=== PATIENT | male | born 1985 | race African-American/Black ===

== ENCOUNTER 2016-08-29 22:23 | Emergency (ER) | payer SELFPAY ==
[~2016-08-29] VITALS: Ht 170.2 cm; Wt 88.5 kg
[2016-08-29 22:23] VITALS: BP 154/83
[~2016-08-29 22:23] MED LIST: FAMO20TA8; HYDR-3658; ONDA-25; PHEN100C4 PO
[2016-08-29] MEDS ORDERED: MAG HYDROX/AL HYDROX/SIMETH 30 ML UDC ONE (22:46)
[2016-08-29] MEDS ORDERED: LIDOCAINE VISCOUS 2% UD 15 ML UDC ONE (22:47)
[2016-08-29] MEDS ORDERED: IV NS 0.9% 1,000 ML ONE (22:47)
[2016-08-29] MEDS ORDERED: IV SET PRIMARY 1 EA INFUS.SET MC ONE (22:47)
[2016-08-29 22:51] LABS: BASOPHILS # (AUTO) 0.1 /CMM (0.0-0.2); BASOPHILS % (AUTO) 0.9 % (0.0-2.0); DIFF TOTAL % 100 %; EOSINOPHILS # (AUTO) 0.1 /CMM (0.0-0.7); EOSINOPHILS % (AUTO) 1.3 % (0.0-6.0); HEMATOCRIT 46 % (39-51); HEMOGLOBIN 15.1 g/dL (13.5-17.5); LYMPHOCYTES # (AUTO) 2.1 /CMM (0.8-4.8); LYMPHOCYTES % (AUTO) 30.5 % (20.0-44.0); MEAN CORPUSCULAR HEMOGLOBIN 30 PG (26.0-33.0); MEAN CORPUSCULAR HGB CONC 33 g/dl (31.0-36.0); MEAN CORPUSCULAR VOLUME 90 fL (80-96); MONOCYTES # (AUTO) 0.3 /CMM (0.1-1.30); MONOCYTES % (AUTO) 3.9 % (2.0-12.0); NEUTROPHILS # (AUTO) 4.5 /CMM (1.8-8.9); NEUTROPHILS % (AUTO) 63.4 % (43.0-81.0); PLATELET COUNT (AUTO) 300 /CMM (150-450); RED BLOOD CELL COUNT(AUTO) 5.06 MIL/uL (4.5-6.0)
[2016-08-29] MEDS ORDERED: BELLADONNA /PHENOBARB 5 ML UDC 5 ML UDC PO ONE (23:00)
[2016-08-29] MEDS ORDERED: IV NS 0.9% 1,000 ML BAG IV ONE (23:00)
[2016-08-29] MEDS ORDERED: MAG HYDROX/AL HYDROX/SIMETH 30 ML UDC PO ONE ×2 (23:00)
[2016-08-29] MEDS ORDERED: LIDOCAINE VISCOUS 2% UD 15 ML UDC MM ONE ×2 (23:00)
[2016-08-29 23:04] LABS: CALCIUM, SERUM 8.4 mg/dL (8.5-10.1); POTASSIUM 3.9 mmol/L (3.5-5.1)
[2016-08-29 23:09] LABS: ALBUMIN 4.2 g/dL (3.4-5.0); BILIRUBIN,DIRECT 0.1 mg/dL (0.0-0.2); BILIRUBIN,TOTAL 0.5 mg/dL (0.2-1.0); INDIRECT BILIRUBIN 0.4 mg/dL (0.0-1.1)
[2016-08-29 23:18] LABS: INR 0.95 (0.87-1.13); PROTHROMBIN TIME 10.3 SECS (9.5-12.7)
== END 2016-08-29 23:56 | disposition left against medical advice (07) ==
LOC: ER 22:26
DX: R10.9 Unspecified abdominal pain (principal); G89.29 Other chronic pain; G40.909 Epilepsy, unspecified, not intractable, without status epilepticus; F20.9 Schizophrenia, unspecified; Z86.711 Personal history of pulmonary embolism
CPT/HCPCS: 80048; 80076; 82962; 85025; 85730; 93005; 96360; 99285; A4606; G0480; J7030; Z7610; 36415

== ENCOUNTER 2018-12-06 09:52 | Emergency (ER) | payer MEDICAID, OTHER ==
[~2018-12-06] VITALS: Ht 185.4 cm; Wt 114.8 kg
[~2018-12-06 09:52] MED LIST changes: -HYDR-3658; +HYDR-3980; -ONDA-25; +ONDA4TAB10
--- NOTE | 2018-12-06 09:55 | NUR ---
AAOx3, came to ER c/o chronic lower back pain, denies recent fall or injury. Skin is warm and dry. Resp is even and unlabored with nad noted. Awaiting MD for eval.
[2018-12-06] MEDS ORDERED: KETOROLAC TROMETHAMINE INJ 30 MG/ML VIAL ONE (10:17)
[2018-12-06 10:25] VITALS: BP 140/95
[2018-12-06] MEDS ORDERED: KETOROLAC TROMETHAMINE INJ 30 MG/ML VIAL IM ONE (10:30)
== END 2018-12-06 10:27 | disposition home or self-care (01) ==
LOC: ER 09:54
DX: M54.5 Low back pain (principal); F20.9 Schizophrenia, unspecified; F10.10 Alcohol abuse, uncomplicated; Y90.9 Presence of alcohol in blood, level not specified; Z90.89 Acquired absence of other organs; Z86.711 Personal history of pulmonary embolism
CPT/HCPCS: 96372; 99283; J1885

== ENCOUNTER 2019-05-01 08:03 | Emergency (ER) | payer MEDICAID, OTHER ==
[~2019-05-01] VITALS: Ht 185.4 cm; Wt 118.8 kg
--- NOTE | 2019-05-01 08:34 | NUR ---
PT CAME IN TO ER WITH C/O OF SUICIDAL IDEATION. PATIENT DOES NOT ENDORSE HARMING SELF OR OTHERS. NO SI. PATIENT ADMITS TO USE OF ALCOHOL, COCAINE, AND NARCOTICS. PATIENT IS KEPT IN BED WITH MOINTOR CONNECTED. SITTER AT BEDSIDE. WILL CONTINUE TO MONITOR PATIENT FOR SAFETY.
[2019-05-01 08:39] LABS: BASOPHILS # (AUTO) 0.1 /CMM (0.0-0.2); EOSINOPHILS % (AUTO) 3.6 % (0.0-6.0); HEMATOCRIT 43 % (39-51); HEMOGLOBIN 14.7 g/dL (13.5-17.5); LYMPHOCYTES # (AUTO) 1.8 /CMM (0.8-4.8); LYMPHOCYTES % (AUTO) 35.1 % (20.0-44.0); MEAN CORPUSCULAR HGB CONC 34 g/dl (31.0-36.0); MEAN CORPUSCULAR VOLUME 94 fL (80-96); MONOCYTES # (AUTO) 0.6 /CMM (0.1-1.30); MONOCYTES % (AUTO) 10.9 % (2.0-12.0); NEUTROPHILS # (AUTO) 2.6 /CMM (1.8-8.9); NEUTROPHILS % (AUTO) 49.4 % (43.0-81.0); PLATELET COUNT (AUTO) 135 /CMM (150-450); RED BLOOD CELL COUNT(AUTO) 4.56 MIL/uL (4.5-6.0); WHITE BLOOD COUNT (AUTO) 5.3 K/uL (4.3-11.0)
--- NOTE | 2019-05-01 08:42 | NUR ---
DAD'S PHONE NUMBER# [phone].
[2019-05-01 08:52] LABS: CALCIUM, SERUM 8.5 mg/dL (8.5-10.1); POTASSIUM 4.2 mmol/L (3.5-5.1)
[2019-05-01 08:59] LABS: ALBUMIN 4.4 g/dL (3.4-5.0); BILIRUBIN,DIRECT 0.5 mg/dL (0.0-0.2); BILIRUBIN,TOTAL 1.1 mg/dL (0.2-1.0); SALICYLATE 2.3 mg/dL (2.8-20.0)
[2019-05-01 09:44] LABS: APPEARANCE,URINE Clear (CLEAR); BILIRUBIN,URINE SMALL (NEGATIVE); BLOOD, URINE Moderate Ery/uL (NEGATIVE); COLOR,URINE Yellow (YELLOW); KETONES,URINE 15 (NEGATIVE); LEUKOCYTE ESTERASE ,URINE Negative (NEGATIVE); NITRITE, URINE Negative (NEGATIVE); PROTEIN,URINE 100 mg/dl (NEGATIVE); UGLUCOSE Negative (NEGATIVE)
[2019-05-01 09:46] LABS: BACTERIA,URINE Rare /HPF (None Seen); SQUAMOUS EPITHELIAL CELL,UR Rare /HPF (None Seen); WBC,URINE 0-2 /HPF (0-3)
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
--- NOTE | 2019-05-01 14:06 | NUR ---
ARACELI called ED x [phone] and spoke with Dony informing him that pt. will need another alcohol level check prior to ARACELI sending clinical referral packet to [facility]. Dony informed ARACELI he will notify pt's RN Adriel.
[2019-05-01] MEDS ORDERED: IV NS 0.9% 1,000 ML BAG IV ONE (17:30)
[2019-05-01] MEDS ORDERED: DIAZEPAM 5 MG/ML 2 ML DISP.SYRIN IV ONE (17:30)
[2019-05-01] MEDS ORDERED: HYDR-4384 PO (17:48)
[2019-05-01] MEDS ORDERED: RIVA10TA PO (17:48)
[2019-05-01] MEDS ORDERED: LORAZEPAM INJ 2 MG/ML VIAL ONE (17:49)
[2019-05-01] MEDS ORDERED: LORAZEPAM INJ 2 MG/ML VIAL IV ONE (18:00)
--- NOTE | 2019-05-01 20:37 | NUR ---
PT IN BED SLEEPING. 1:1 SITTER AT BEDSIDE
[2019-05-01] MEDS ORDERED: LORAZEPAM 1 MG TABLET ONE (23:35)
--- NOTE | 2019-05-01 23:57 | NUR ---
Patient discharged to home in stable condition. Written and verbal after care instructions given. Patient verbalizes understanding of instruction.IV removed. Catheter intact and site benign. Pressure and 4x4 applied to site. No bleeding noted. Pt ambulatory with a steady gait. Pt denies any suicidal ideation.
[2019-05-02] MEDS ORDERED: LORAZEPAM 1 MG TABLET PO ONE
[2019-05-02 00:37] VITALS: BP 131/90
== END 2019-05-01 23:57 | disposition home or self-care (01) ==
LOC: ER 08:06
DX: R45.851 Suicidal ideations (principal); Z90.89 Acquired absence of other organs; Z79.899 Other long term (current) drug therapy
CPT/HCPCS: 36415; 80048; 80076; 80305; 80307 ×2; 80329; 81001; 85025; 96374; 99284; G0480; J2060; J7030; 81000-TC

== ENCOUNTER 2020-06-04 13:58 | Inpatient (IN) | payer MEDICAID, OTHER ==
[~2020-06-04] VITALS: Ht 190.5 cm; Wt 107.5 kg
[~2020-06-04 13:58] MED LIST changes: -FAMO20TA8; -HYDR-3980; +HYDR-4384 PO; -ONDA4TAB10; -PHEN100C4 PO; +RIVA10TA PO
--- NOTE | 2020-06-04 14:10 | NUR ---
[place] PT STATED THAT HE 'HAD A SEIZURE' NO WITNESSES. PT CALLED 911 HIMSELF. VS CHECKED. SEEN BY
--- NOTE | 2020-06-04 14:20 | NUR ---
URINE COLLECTED SENT TO LAB.
[2020-06-04] MEDS ORDERED: LORAZEPAM INJ 2 MG/ML VIAL IV ONE (14:30)
[2020-06-04] MEDS ORDERED: FOLIC ACID 1 MG TABLET PO ONE (14:30)
[2020-06-04] MEDS ORDERED: IV NS 0.9% 1,000 ML IV ONE (14:30)
[2020-06-04] MEDS ORDERED: LIDOCAINE VISCOUS 2% UD 15 ML UDC MM ONE (14:30)
[2020-06-04] MEDS ORDERED: MAG HYDROX/AL HYDROX/SIMETH 30 ML UDC PO ONE (14:30)
[2020-06-04] MEDS ORDERED: THIAMINE HCL 100 MG TABLET PO ONE (14:30)
[2020-06-04] MEDS ORDERED: FAMOTIDINE/PF INJ 20 MG/2 ML VIAL IV ONE ×2 (14:30→14:44)
[2020-06-04] MEDS ORDERED: ONDANSETRON HCL/PF 4 MG/2 ML VIAL IV ONE (14:30)
[2020-06-04] MEDS ORDERED: MAG HYDROX/AL HYDROX/SIMETH 30 ML UDC ONE (14:43)
[2020-06-04] MEDS ORDERED: LIDOCAINE VISCOUS 2% UD 15 ML UDC ONE (14:43)
[2020-06-04] MEDS ORDERED: THIAMINE HCL 100 MG TABLET ONE (14:44)
[2020-06-04] MEDS ORDERED: FOLIC ACID 1 MG TABLET ONE (14:44)
[2020-06-04] MEDS ORDERED: ONDANSETRON HCL/PF 4 MG/2 ML VIAL ONE (14:44)
[2020-06-04] MEDS ORDERED: LORAZEPAM INJ 2 MG/ML VIAL ONE (14:45)
[2020-06-04 14:47] LABS: BASOPHILS % (AUTO) 0.8 % (0.0-2.0); EOSINOPHILS % (AUTO) 0.4 % (0.0-6.0); HEMATOCRIT 45 % (39-51); LYMPHOCYTES # (AUTO) 1.9 /CMM (0.8-4.8); LYMPHOCYTES % (AUTO) 43.8 % (20.0-44.0); MEAN CORPUSCULAR HGB CONC 34 g/dl (31.0-36.0); MEAN CORPUSCULAR VOLUME 95 fL (80-96); MONOCYTES # (AUTO) 0.3 /CMM (0.1-1.30); MONOCYTES % (AUTO) 7.8 % (2.0-12.0); NEUTROPHILS % (AUTO) 47.2 % (43.0-81.0); PLATELET COUNT (AUTO) 92 /CMM (150-450); RED BLOOD CELL COUNT(AUTO) 4.69 MIL/uL (4.5-6.0); WHITE BLOOD COUNT (AUTO) 4.3 K/uL (4.3-11.0)
[2020-06-04 15:13] LABS: BILIRUBIN,URINE NEGATIVE (NEGATIVE); BLOOD, URINE TRACE-INTA Ery/uL (NEGATIVE); COLOR,URINE YELLOW (YELLOW); LEUKOCYTE ESTERASE ,URINE NEGATIVE (NEGATIVE); NITRITE, URINE NEGATIVE (NEGATIVE); PROTEIN,URINE NEGATIVE (NEGATIVE); UGLUCOSE NEGATIVE (NEGATIVE); UROBILINOGEN,URINE 0.2 EU/dL (0.2)
[2020-06-04 15:36] LABS: BACTERIA,URINE None seen /HPF (None Seen); RBC,URINE 0-2 /HPF (0-2); SQUAMOUS EPITHELIAL CELL,UR 0-2 /HPF (None Seen); WBC,URINE 0-2 /HPF (0-3)
[2020-06-04 16:23] LABS: EOSINOPHILS % (MANUAL) 1 % (0-4); LYMPHOCYTES % (MANUAL) 39 % (16-48); MONOCYTES % (MANUAL) 5 % (0-11.0); NEUTROPHILS % (MANUAL) 55 (42-76)
--- NOTE | 2020-06-04 16:24 | NUR ---
CALLED NURSING SUP FOR TELE BED.
--- NOTE | 2020-06-04 16:26 | NUR ---
called lab for pending lab results
--- NOTE | 2020-06-04 16:55 | NUR ---
NURSING SUP GAVE TELE BED 112-1.
--- NOTE | 2020-06-04 17:10 | NUR ---
called for report, rajendra jones will call back in 10 min.
--- NOTE | 2020-06-04 17:20 | NUR ---
PAGED [facility].
--- NOTE | 2020-06-04 17:26 | NUR ---
report given to rajendra jones at [facility] pt will be going to 112-1
--- NOTE | 2020-06-04 17:54 | NUR ---
PAGED EPIC, SECOND ATTEMPT.
[2020-06-04 18:25] LABS: ALANINE AMINOTRANSFERASE 59 U/L (12-78); ALBUMIN 3.8 g/dL (3.4-5.0); ALKALINE PHOSPHATASE 76 U/L (46-116); CALCIUM, SERUM 8.3 mg/dL (8.5-10.1); CARBON DIOXIDE 22 mmol/L (21-32); CHLORIDE 98 mmol/L (98-107); CREATININE 0.8 mg/dL (0.6-1.3); LIPASE 803 U/L (73-393); POTASSIUM 3.7 mmol/L (3.5-5.1); SODIUM SERUM 136 mmol/L (136-145); TOTAL PROTEIN, SERUM 7.6 g/dL (6.4-8.2)
[2020-06-04 18:52] LABS: ALCOHOL, BLOOD 358 mg/dL (0-0); ASPARTATE AMINOTRANSFERASE 99 U/L (15-37); BILIRUBIN,DIRECT 0.3 mg/dL (0.0-0.2); BILIRUBIN,TOTAL 0.7 mg/dL (0.2-1.0); GLUCOSE 103 mg/dL (74-106); UREA NITROGEN, BLOOD 7 mg/dL (7-18)
[2020-06-04 18:56] LABS: ACETAMINOPHEN < 2 ug/ml (10-30)
--- NOTE | 2020-06-04 19:04 | NUR ---
TELE/RN CLOSING NOTES RECEIVED FROM DAYA BRICE RN, A MALE PATIENT, PATIENT ARRIVE AT THE UNIT AT 1850, NO APPARENT RESPIRATORY DISTRESS NOTED. CONTINUOUS ASSESSMENT AND DOCUMENTATION WILL ENDORSED TO NADEEM MILLS.
[2020-06-04] MEDS ORDERED: ONDANSETRON HCL/PF 4 MG/2 ML VIAL IVP PRN (19:30)
--- NOTE | 2020-06-04 19:30 | NUR ---
RN NOTES ADMITTED PATIENT FROM ER TO ROOM 112-1 VIA [facility]. PATIENT IS ALERT AND ORIENTED X4, ABLE TO VERBALIZED NEEDS. TAJIK SPEAKING. ON ROOM AIR, O2 SAT 97%. NO SOB OR ANY RESPIRATORY DISTRESS. SAFELY TRANSFERRED FROM [facility] TO BED. ON TELE MONITOR, SINUS RHYTHM HR 101. HEAD TO TOE ASSESSMENT DONE. SKIN INTACT, NO S/S OF ANY SKIN BREAKDOWN. INITIAL ASSESSMENT DONE. VITAL SIGNS CHECKED AND RECORDED. WITH IV ON RIGHT HAND #22 PATENT AND FLUSHED. ON IV D5 1/2 NS @ 150ML/HR, INFUSING WELL. DUE MEDS STARTED. PATIENT IS NPO. BED LOCKED AND IN LOWEST POSITION. SIDE RAILS UP X2. ALL SAFETY MEASURES IMPLEMENTED. CALL LIGHT WITHIN REACH.
[2020-06-04] MEDS: IV D5/0.45 NACL 1,000 ML IV PRN (19:53)
[2020-06-04 20:00] VITALS: BP 130/94
[2020-06-04] MEDS: MORPHINE SULFATE INJ 2 MG/ML DISP.SYRIN IV PRN (20:03)
[2020-06-04] MEDS: Thiamine 100 MG in IV D5W 50 ML IV SCH (20:47)
[2020-06-04] MEDS: LORAZEPAM INJ 2 MG/ML VIAL IV PRN (20:53)
[2020-06-04] MEDS: Folic acid 1 MG in IV D5W 50 ML IV SCH (21:24)
[2020-06-05] VITALS: BP 135/90
[2020-06-05] MEDS: MORPHINE SULFATE INJ 2 MG/ML DISP.SYRIN IV PRN ×7 (00:42→21:22)
[2020-06-05] MEDS: LORAZEPAM INJ 2 MG/ML VIAL IV PRN ×5 (01:42→19:55)
[2020-06-05 04:00] VITALS: BP 133/90
[2020-06-05] MEDS: IV D5/0.45 NACL 1,000 ML IV PRN ×3 (04:55→20:01)
[2020-06-05 06:31] LABS: BASOPHILS % (AUTO) 1.2 % (0.0-2.0); EOSINOPHILS % (AUTO) 1.1 % (0.0-6.0); HEMATOCRIT 41 % (39-51); HEMOGLOBIN 13.6 g/dL (13.5-17.5); LYMPHOCYTES # (AUTO) 1.1 /CMM (0.8-4.8); MEAN CORPUSCULAR HGB CONC 33 g/dl (31.0-36.0); MEAN CORPUSCULAR VOLUME 95 fL (80-96); MONOCYTES # (AUTO) 0.3 /CMM (0.1-1.30); MONOCYTES % (AUTO) 9.9 % (2.0-12.0); NEUTROPHILS # (AUTO) 1.9 /CMM (1.8-8.9); NEUTROPHILS % (AUTO) 54.8 % (43.0-81.0); PLATELET COUNT (AUTO) 72 /CMM (150-450); RED BLOOD CELL COUNT(AUTO) 4.34 MIL/uL (4.5-6.0); WHITE BLOOD COUNT (AUTO) 3.4 K/uL (4.3-11.0)
[2020-06-05 06:53] LABS: ALBUMIN 3.4 g/dL (3.4-5.0); CALCIUM, SERUM 8.4 mg/dL (8.5-10.1); CREATININE 0.8 mg/dL (0.6-1.3); PHOSPHORUS 3.4 mg/dL (2.5-4.9); POTASSIUM 3.3 mmol/L (3.5-5.1); TOTAL PROTEIN, SERUM 6.9 g/dL (6.4-8.2)
--- NOTE | 2020-06-05 06:55 | NUR ---
teletypesetter operator notes spoke to ena guerra pts margaret multiple time piv attempted with order for midline insertion order noted and carried out glenn steel floor pan placing supervisor made aware of order.
[2020-06-05 07:14] LABS: THYROID STIMULATING HORMONE 1.829 uIU/mL (0.358-3.74)
--- NOTE | 2020-06-05 07:21 | NUR ---
RN NOTES PATIENT AWAKE, ALERT, AND ORIENTED X4. O2 SAT 95% IN ROOM AIR. NO SOB OR ANY RESPIRATORY DISTRESS. SKIN IS INTACT, NO S/S OF ANY SKIN BREAKDOWN. ON TELE MONITOR HR 92. ALL NEEDS ATTENDED PROMPTLY. BED LOCKED AND IN LOWEST POSITION. SIDERAILS UP X2. SAFETY MEASURES IMPLEMENTED. CALL LIGHT WITHIN REACH. ENDORSED TO ONCOMING SHIFT.
--- NOTE | 2020-06-05 07:30 | NUR ---
RN MS NOTES PT IN BED, AWAKE, ALERT AND ORIENTED, NO COMPLAINT OF PAIN AT THIS TIME, BREATHING PATTERN NORMAL, CALL LIGHT WITHIN REACH, NEEDS ATTENDED.
[2020-06-05 08:00] VITALS: BP 139/80
[2020-06-05] MEDS: PANTOPRAZOLE 40 MG VIAL IV SCH (09:00)
[2020-06-05] MEDS ORDERED: POTASSIUM CHLORIDE 20 MEQ TAB.PRT.SR PO SCH (11:00)
[2020-06-05] MEDS: POTASSIUM CL. PREMIX PERIPHER. 50 ML IV SCH ×2 (11:44→14:36)
--- NOTE | 2020-06-05 13:03 | NUR ---
RN MS NOTES PT IN BED, AWAKE, ALERT AND ORIENTED, SEEN BY DR. OJEDA, PLAN OF CARE DISCUSSED WITH PT, VERBALIZED UNDERSTANDING, PER MD KEEP PT NPO.
[2020-06-05 16:00] VITALS: BP 114/85
--- NOTE | 2020-06-05 18:03 | NUR ---
RN MS NOTES PT IN BED, AWAKE, ALERT AND ORIENTED, PAIN MEDS AND ANTI ANXIETY MED GIVEN ORDERED, SEEN BY DR. OJEDA TODAY, ASSISTED WITH URINAL USE, ABLE TO GET UP FROM BED WITH ASSISTANCE, MIDLINE PLACED AT RIGHT UPPER ARM BY NICOLASA VALENTIN, PM CARE PROVIDED, ALL NEEDS ATTENDED.
[2020-06-05] MEDS: Folic acid 1 MG in IV D5W 50 ML IV SCH (19:56)
[2020-06-05 20:00] VITALS: BP 121/71
--- NOTE | 2020-06-05 20:00 | NUR ---
RN NOTES RECEIVED PATIENT IN BED AWAKE ALERT AND ORIENTED X4, ABLE TO VERBALIZED NEEDS. ANDORRAN SPEAKING. ON ROOM AIR, O2 SAT 98%. NO SOB OR ANY RESPIRATORY DISTRESS. . ON MS STATUS. HEAD TO TOE ASSESSMENT DONE. SKIN INTACT, VITAL SIGNS CHECKED AND RECORDED. WITH IV ON RIGHT HAND #22 PATENT AND FLUSHED.AND RIGHT UPPER ARM MIDLINE INTACT AND PATENT , ON IVF D5 1/2 NS @ 150ML/HR, INFUSING WELL. DUE MEDS GIVEN ORDERED ,NO ASE NOTED. PATIENT IS MAINTAINED NPO STATUS , PAIN MGT GIVEN ORDERED .BED LOCKED AND IN LOWEST POSITION. SIDE RAILS UP X2 AND PADDED D/T SEIZURE D/O ,NO SEIZURE ACTIVITY NOTED ALL SAFETY MEASURES IMPLEMENTED. CALL LIGHT WITHIN REACH.V/S STABLE AFEBRILE ,WILL CONTINUE TO MONITOR PTS.
[2020-06-05] MEDS: Thiamine 100 MG in IV D5W 50 ML IV SCH (20:52)
[2020-06-06] MEDS: MORPHINE SULFATE INJ 2 MG/ML DISP.SYRIN IV PRN ×5 (01:36→20:25)
[2020-06-06 04:00] VITALS: BP 147/71
[2020-06-06] MEDS: IV D5/0.45 NACL 1,000 ML IV PRN ×3 (04:13→17:57)
[2020-06-06] MEDS: LORAZEPAM INJ 2 MG/ML VIAL IV PRN ×5 (04:14→21:09)
--- NOTE | 2020-06-06 06:22 | NUR ---
RN MS NOTES PT IN BED, AWAKE, ALERT AND ORIENTED, PAIN MEDS AND ANTI ANXIETY MED GIVEN ORDERED, NPO STATUS MAINTAINED , ABLE TO GET UP FROM BED WITH ASSISTANCE, RIGHT UA MIDLINE INTACT AND PATENT ,CONTINUE ON IVF D5 1/2 NS AT 150CC/HR INFUSING WELL . ALL NEEDS ATTENDED TOO CALL LIGHT WITHIN REACH KEPT PTS CLEAN DRY AND COMFORTABLE, WILL ENDORSE TO RN DAY SHIFT FOR CONTINUITY OF CARE.
[2020-06-06 06:45] LABS: BASOPHILS % (AUTO) 0.7 % (0.0-2.0); EOSINOPHILS % (AUTO) 2.3 % (0.0-6.0); HEMATOCRIT 38 % (39-51); HEMOGLOBIN 12.8 g/dL (13.5-17.5); LYMPHOCYTES # (AUTO) 0.7 /CMM (0.8-4.8); LYMPHOCYTES % (AUTO) 15.8 % (20.0-44.0); MEAN CORPUSCULAR HGB CONC 33 g/dl (31.0-36.0); MEAN CORPUSCULAR VOLUME 95 fL (80-96); MONOCYTES # (AUTO) 0.4 /CMM (0.1-1.30); MONOCYTES % (AUTO) 9.4 % (2.0-12.0); NEUTROPHILS # (AUTO) 3.1 /CMM (1.8-8.9); NEUTROPHILS % (AUTO) 71.8 % (43.0-81.0); PLATELET COUNT (AUTO) 58 /CMM (150-450); RED BLOOD CELL COUNT(AUTO) 4.05 MIL/uL (4.5-6.0); WHITE BLOOD COUNT (AUTO) 4.3 K/uL (4.3-11.0)
[2020-06-06 07:09] LABS: ALBUMIN 3.3 g/dL (3.4-5.0); BILIRUBIN,TOTAL 1.3 mg/dL (0.2-1.0); CALCIUM, SERUM 8.9 mg/dL (8.5-10.1); CREATININE 0.7 mg/dL (0.6-1.3); MAGNESIUM 1.9 mg/dL (1.8-2.4); PHOSPHORUS 3.1 mg/dL (2.5-4.9); POTASSIUM 3.6 mmol/L (3.5-5.1); TOTAL PROTEIN, SERUM 6.6 g/dL (6.4-8.2)
--- NOTE | 2020-06-06 07:53 | NUR ---
RN Opening Note Received patient in bedb sleeping AO x 4, able to responds all stimuli, does no appears pain or discomfort. Respiratory even and unlabored on room air O2sat 98%, no distress or SOB observed. Skin is warm to touch keep clean/dry, intact IV site on right upper arm midline running D51/2 NS at 150 ml/hr. Kept locked bed with elevated HOB for ensure airway and aspiration precaution and lowest position for safety. Call light within reach, will continue to monitor.
[2020-06-06] MEDS: PANTOPRAZOLE 40 MG VIAL IV SCH (09:31)
[2020-06-06 09:50] LABS: EOSINOPHILS % (MANUAL) 2 % (0-4); LYMPHOCYTES % (MANUAL) 18 % (16-48); MONOCYTES % (MANUAL) 8 % (0-11.0); NEUTROPHILS % (MANUAL) 72 (42-76)
--- NOTE | 2020-06-06 18:45 | NUR ---
RN Closing note Patient in bed resting, does no appears discomfort, skin is warm to touch keep clean/dry, intact IV site ruining D51/2 NS at 150ml/hr. Respiratory even and unlabored on room air O2sat 98%, no sob or distress observed. Kept locked bed and elevated HOB for ensure airway and aspiration precaution, and lowest position for safety, bed alarm is on at all the times, call light within reach, will endorse night club manager.
--- NOTE | 2020-06-06 19:20 | NUR ---
MS LINA OPEN NOTES PT IS WATCHING TV IN BED. A/O X4. STABLE ON RA, NO SOB/ ACUTE RESPIRATORY DISTRESS NOTED. MIDLINE IN R UPPERARM 18G IS PATENT AND INTACT RUNNING D5 1/2NS @ 105 MLS/HR. BED IS IN LOWEST LOCKED POSITION WITH SIDE RAILS UP X3, SEMI FOWLERS. CALL LIGHT IS WITHIN REACH. WILL CONTINUE TO MONITOR.
[2020-06-06] MEDS: Thiamine 100 MG in IV D5W 50 ML IV SCH (19:33)
[2020-06-06 20:00] VITALS: BP 111/78
[2020-06-06] MEDS: Folic acid 1 MG in IV D5W 50 ML IV SCH (20:06)
--- NOTE | 2020-06-06 21:00 | NUR ---
MS RN NOTES PATIENT IS VERY ANXIOUS AND IS CONSTANTLY TRYING TO GET OUT OF BED. WILL KEEP BED ALARM ON THROUGHOUT THE NIGHT, ADMINISTER ATIVAN PRN AND MONITOR PT.
--- NOTE | 2020-06-06 22:43 | NUR ---
MS RN NOTES PT COMPLAINED OF BEING UNABLE TO SLEEP. MD ORDERED AMBIEN 5 MG QHS PRN. ORDER NOTED AND CARRIED OUT.
[2020-06-06] MEDS ORDERED: ZOLPIDEM TARTRATE 5 MG TABLET PO PRN (22:50)
[2020-06-07] MEDS: LORAZEPAM INJ 2 MG/ML VIAL IV PRN ×2 (01:25→06:06)
[2020-06-07] MEDS: MORPHINE SULFATE INJ 2 MG/ML DISP.SYRIN IV PRN ×2 (02:34→06:52)
[2020-06-07] MEDS: IV D5/0.45 NACL 1,000 ML IV PRN (03:00)
[2020-06-07 04:00] VITALS: BP 149/81
[2020-06-07 04:09] VITALS: BP 111/78
[2020-06-07 05:43] LABS: BASOPHILS % (AUTO) 1.1 % (0.0-2.0); EOSINOPHILS % (AUTO) 2.9 % (0.0-6.0); HEMATOCRIT 40 % (39-51); HEMOGLOBIN 13.6 g/dL (13.5-17.5); LYMPHOCYTES # (AUTO) 0.8 /CMM (0.8-4.8); LYMPHOCYTES % (AUTO) 19.5 % (20.0-44.0); MEAN CORPUSCULAR HGB CONC 34 g/dl (31.0-36.0); MEAN CORPUSCULAR VOLUME 94 fL (80-96); MONOCYTES # (AUTO) 0.5 /CMM (0.1-1.30); MONOCYTES % (AUTO) 11.2 % (2.0-12.0); NEUTROPHILS # (AUTO) 2.6 /CMM (1.8-8.9); NEUTROPHILS % (AUTO) 65.3 % (43.0-81.0); PLATELET COUNT (AUTO) 68 /CMM (150-450); RED BLOOD CELL COUNT(AUTO) 4.26 MIL/uL (4.5-6.0)
[2020-06-07 06:03] LABS: EOSINOPHILS % (MANUAL) 3 % (0-4); LYMPHOCYTES % (MANUAL) 18 % (16-48); MONOCYTES % (MANUAL) 13 % (0-11.0); NEUTROPHILS % (MANUAL) 66 (42-76)
[2020-06-07 06:17] LABS: ALBUMIN 3.6 g/dL (3.4-5.0); BILIRUBIN,TOTAL 1.2 mg/dL (0.2-1.0); CALCIUM, SERUM 9.3 mg/dL (8.5-10.1); CREATININE 0.7 mg/dL (0.6-1.3); MAGNESIUM 2.2 mg/dL (1.8-2.4); PHOSPHORUS 3.6 mg/dL (2.5-4.9); POTASSIUM 3.5 mmol/L (3.5-5.1); TOTAL PROTEIN, SERUM 7.5 g/dL (6.4-8.2)
--- NOTE | 2020-06-07 06:31 | NUR ---
MS RN CLOSE NOTES PATIENT IS LAYING IN BED. A/O X3-4, STILL VERY ANXIOUS AND FIDGETY. STABLE ON RA, NO SOB/ ACUTE RESPIRATORY DISTRESS NOTED. MIDLINE IN RIGHT UPPERARM IS PATENT AND INTACT RUNNING D5 1/2NS @ 150 MLS/HR. ALL DUE MEDICATIONS GIVEN. PAIN MANAGEMENT PROVIDED THROUGHOUT THE NIGHT. SEIZURE PRECAUTIONS IN PLACE, SIDE RAILS PADDED. URINAL WITHIN EASY REACH. PT KEPT NPO THROUGH THE NIGHT. BED IS IN LOWEST LOCKED POSITION WITH SIDE RAILS UP X3, SEMI FOWLERS. BED ALARM ON. CALL LIGHT IS WITHIN REACH. WILL ENDORSE TO AM NURSE.
--- NOTE | 2020-06-07 07:00 | NUR ---
PATIENT IS LAYING IN BED. A/O X3-4 ANXIOUS AND FIDGETY. STABLE ON RA, NO SOB/ ACUTE RESPIRATORY DISTRESS NOTED. SKIN WARM FLUSHED. MIDLINE IN RIGHT UPPERARM IS PATENT AND INTACT RUNNING D5 1/2NS @ 150 MLS/HR. PAIN MANAGEMENT WILL BE MONITORED THROUGHOUT SHIFT. SEIZURE PRECAUTIONS IN PLACE AND MONITORED, SIDE RAILS PADDED. URINAL WITHIN EASY REACH. PT KEPT NPO. BED IS IN LOWEST LOCKED POSITION WITH SIDE RAILS UP X3, SEMI FOWLERS. BED ALARM ON. CALL LIGHT IS WITHIN REACH.
[2020-06-07] MEDS: PANTOPRAZOLE 40 MG VIAL IV SCH (08:29)
--- NOTE | 2020-06-07 09:10 | NUR ---
PT NOT FOUND IN ROOM OR BATH ROOM OR [facility] UNIT. SECURITY NOTIFIED. CHARGE NURSE NOTIFIED.DIRECTOR QUALITY ASSURANCE AND PRIMARY PHYSICIAN NOTIFIED. PT GAIT STEADY. IV ACCESS PRESENT. MIDLINE ON RIGHT UPPER ARM. WRIST BAND PRESENT. PT EDUCATED EARLIER ON IMPORTANCE OF FOLLOWING PRESCRIBED PLAN AND PATIENT VERBALIZED WANTING TO STAY IN THE HOSPITAL AND WAS WILLING TO COOPERATE.
--- NOTE | 2020-06-07 09:57 | NUR ---
INCIDENT REPORT ON FILE Unique Id: [id number]
--- NOTE | 2020-06-07 10:29 | NUR ---
NOTIFIED CHARGE NURSE, SECURITY, DIRECTOR ECONOMIC, PRIMARY PHYSICIAN, MARISABEL. MARISABEL REPORT #[id number]. ATTEMPTED TO INFORM NEXT OF KIN BUT THE PROVIDED NUMBER DID NOT BELONG TO FAMILY.
--- NOTE | 2020-06-07 12:00 | NUR ---
UPDATED INCIDENT REPORT Unique Id: [id number]
== END 2020-06-07 09:00 | disposition left against medical advice (07) | DRG 282 ==
LOC: ER 14:06 → TELE1 17:06 → MEDSG1 06-05 08:23
PROC: 05H533Z Insertion of Infusion Device into Right Subclavian Vein, Percutaneous Approach (ICD-10-PCS; principal; 2020-06-05)
PROC: B546ZZA Ultrasonography of Right Subclavian Vein, Guidance (ICD-10-PCS; 2020-06-05)
DX: K85.20 Alcohol induced acute pancreatitis without necrosis or infection (principal); F10.239 Alcohol dependence with withdrawal, unspecified; D69.59 Other secondary thrombocytopenia; K27.9 Peptic ulcer, site unspecified, unspecified as acute or chronic, without hemorrhage or perforation; F17.210 Nicotine dependence, cigarettes, uncomplicated; Z86.711 Personal history of pulmonary embolism; G40.89 Other seizures; Y90.8 Blood alcohol level of 240 mg/100 ml or more; F20.9 Schizophrenia, unspecified
CPT/HCPCS: 36415; 80048-TC; 80053-TC; 80061-TC; 80076-TC; 81001; 83690-TC; 83735-TC; 84100-TC; 84443-TC; 85025-TC; 87081-TC; C9113; C9803; G0378; G0480; J2060; J2270; J2405; J3411; J3480; J3490; J7030; J7060

== ENCOUNTER 2020-06-07 14:59 | Emergency (ER) | payer OTHER ==
[~2020-06-07] VITALS: Ht 185.4 cm; Wt 108.9 kg
--- NOTE | 2020-06-07 14:59 | NUR ---
BIBRA 909 FRM HOME, FOR REMOVAL OF ARLEN PICC LINE, STATES "TOOK 3 NORCO'S" NOTED W TREMORS AND DIAPHORESIS, AMA YESTERDAY FOR SEIZURES. TO ER BED 14, HOOKED TO AUTOMATED CUTTING MACHINE OPERATOR, BP CUFF AND POX, NOTED TACHYCARDIC, SEIZURE PREC APPLIED. CHANGED TO HOSP GOWN, WARM BLANKET PROVIDED, NAD NOTED. AWAITING MD DUGAN
--- NOTE | 2020-06-07 15:40 | NUR ---
DR EVANS AT BEDSIDE
[2020-06-07 15:49] VITALS: BP 112/71
[2020-06-07 16:27] LABS: BASOPHILS % (AUTO) 0.2 % (0.0-2.0); EOSINOPHILS % (AUTO) 0.3 % (0.0-6.0); HEMATOCRIT 41 % (39-51); HEMOGLOBIN 13.6 g/dL (13.5-17.5); LYMPHOCYTES # (AUTO) 0.9 /CMM (0.8-4.8); LYMPHOCYTES % (AUTO) 9.1 % (20.0-44.0); MEAN CORPUSCULAR HGB CONC 33 g/dl (31.0-36.0); MEAN CORPUSCULAR VOLUME 95 fL (80-96); MONOCYTES # (AUTO) 0.8 /CMM (0.1-1.30); MONOCYTES % (AUTO) 7.9 % (2.0-12.0); NEUTROPHILS # (AUTO) 7.8 /CMM (1.8-8.9); NEUTROPHILS % (AUTO) 82.5 % (43.0-81.0); PLATELET COUNT (AUTO) 96 /CMM (150-450); RED BLOOD CELL COUNT(AUTO) 4.31 MIL/uL (4.5-6.0); WHITE BLOOD COUNT (AUTO) 9.5 K/uL (4.3-11.0)
[2020-06-07] MEDS ORDERED: IV NS 0.9% 1,000 ML BAG IV ONE (16:30)
[2020-06-07 16:31] LABS: CALCIUM, SERUM 9.5 mg/dL (8.5-10.1); CREATININE 1.1 mg/dL (0.6-1.3); POTASSIUM 3.4 mmol/L (3.5-5.1)
[2020-06-07 16:40] LABS: BILIRUBIN,DIRECT 0.5 mg/dL (0.0-0.2); TOTAL PROTEIN, SERUM 8.1 g/dL (6.4-8.2)
--- NOTE | 2020-06-07 16:42 | NUR ---
PATIENT REFUSED TO SIGN AMA FORM. WITNESSED WITH SALBADOR ARABELLA MIDDLETON RN
--- NOTE | 2020-06-07 16:44 | NUR ---
Patient does not wish to proceed with medical care recommended by Dr. Smith. Patient given information related to possible complications, up to and including , which could occur as a result of leaving the hospital at this time. Patient verbalizes understanding of risks involved due to leaving against medical advice.
[2020-06-07 18:46] LABS: BAND % (MANUAL) 2 % (0.0-5.0); LYMPHOCYTES % (MANUAL) 12 % (16-48); MONOCYTES % (MANUAL) 9 % (0-11.0); NEUTROPHILS % (MANUAL) 77 (42-76)
== END 2020-06-07 16:45 | disposition left against medical advice (07) ==
LOC: ER 15:02
DX: R10.84 Generalized abdominal pain (principal); G89.29 Other chronic pain; Z86.711 Personal history of pulmonary embolism; Z90.89 Acquired absence of other organs; Z79.899 Other long term (current) drug therapy
CPT/HCPCS: 36415; 80048; 80076; 83690; 85007; 85025; 96360; 99283; J7030

== ENCOUNTER 2020-12-30 03:32 | Emergency (ER) | payer OTHER ==
[~2020-12-30] VITALS: Ht 185.4 cm; Wt 108.9 kg
--- NOTE | 2020-12-30 03:45 | NUR ---
PATIENT CAME TO THE ER BED 10 C/O WITNESSED SYNCOPAL EPISODE AT HOME WITH FATHER. ACCORDING TO FATHER. PATIENT HAD LOST CONSCIOUSNESS. PATIENT HX OF GRAN MAL SEIZURES. PATIENT IS POST-ICTAL ON ARRIVAL. DURING ASSESSMENT, PATIENT IS ABLE TO STATE NAME AND BIRTHDATE, BUT IS UNABLE TO REMEMBER WHAT HAD HAPPENED WHEN HE LOST CONSCIOUSNESS. PATIENT IS BREATHING EVENLY AND UNLABORED ON ROOM AIR. CONNECTED TO THE EMPLOYMENT SERVICE SPECIALIST.
--- NOTE | 2020-12-30 03:50 | NUR ---
BLOOD DRAWN AND SENT TO THE LAB.
[2020-12-30 03:57] LABS: HEMATOCRIT 37 % (39-51); HEMOGLOBIN 12.6 g/dL (13.5-17.5); MEAN CORPUSCULAR HGB CONC 34 g/dl (31.0-36.0); MEAN CORPUSCULAR VOLUME 101 fL (80-96); RED BLOOD CELL COUNT(AUTO) 3.72 MIL/uL (4.5-6.0); WHITE BLOOD COUNT (AUTO) 6.8 K/uL (4.3-11.0)
[2020-12-30 03:58] LABS: BASOPHILS # (AUTO) 0.1 /CMM (0.0-0.2); EOSINOPHILS % (AUTO) 3.5 % (0.0-6.0); LYMPHOCYTES # (AUTO) 2.4 /CMM (0.8-4.8); LYMPHOCYTES % (AUTO) 35.2 % (20.0-44.0); MONOCYTES % (AUTO) 14.1 % (2.0-12.0); NEUTROPHILS # (AUTO) 3.1 /CMM (1.8-8.9); NEUTROPHILS % (AUTO) 46.2 % (43.0-81.0); PLATELET COUNT (AUTO) 319 /CMM (150-450)
[2020-12-30] MEDS ORDERED: IV NS 0.9% 1,000 ML BAG IV ONE (04:00)
[2020-12-30 04:10] LABS: CALCIUM, SERUM 9.2 mg/dL (8.5-10.1); CARBON DIOXIDE 27 mmol/L (21-32); CHLORIDE 99 mmol/L (98-107); CREATININE 1.5 mg/dL (0.6-1.3); POTASSIUM 4.2 mmol/L (3.5-5.1); SODIUM SERUM 137 mmol/L (136-145); UREA NITROGEN, BLOOD 9 mg/dL (7-18)
--- NOTE | 2020-12-30 04:15 | NUR ---
BROUGHT TO CT AND BACK.
[2020-12-30 04:16] LABS: ALANINE AMINOTRANSFERASE 39 U/L (12-78); ALBUMIN 3.7 g/dL (3.4-5.0); ALKALINE PHOSPHATASE 89 U/L (46-116); ASPARTATE AMINOTRANSFERASE 28 U/L (15-37); BILIRUBIN,DIRECT 0.2 mg/dL (0.0-0.2); BILIRUBIN,TOTAL 0.8 mg/dL (0.2-1.0); TOTAL PROTEIN, SERUM 7.9 g/dL (6.4-8.2)
--- NOTE | 2020-12-30 04:16 | NUR ---
Fara linton in ED - 12/30/20 at 0418 by SAVI REPORT GIVEN TO [place] AT [place], CALL BACK NUMBER IS [phone] EXT. [phone]
[2020-12-30 04:22] LABS: GLUCOSE 108 mg/dL (74-106)
--- NOTE | 2020-12-30 04:25 | NUR ---
UNABLE TO PROVIDE URINE SAMPLE
--- NOTE | 2020-12-30 04:42 | NUR ---
PT REFSUING TO PROVIDE URINE. I DID ASK THE PT MULTIPLE TIMES TO PROVIDE A URINE SAMPLE, PT STATED NOT YET MANY TIMES THEN NO.
--- NOTE | 2020-12-30 05:14 | NUR ---
Patient discharged to home in stable condition. Written and verbal after care instructions given. Patient verbalizes understanding of instruction. IV removed. Catheter intact and site benign. Pressure and 4x4 applied to site. No bleeding noted.
[2020-12-30 05:15] VITALS: BP 128/68
== END 2020-12-30 05:17 | disposition home or self-care (01) ==
LOC: ER 03:35
DX: F10.239 Alcohol dependence with withdrawal, unspecified (principal); R56.9 Unspecified convulsions; F20.9 Schizophrenia, unspecified; R55 Syncope and collapse; Z90.89 Acquired absence of other organs; Y90.0 Blood alcohol level of less than 20 mg/100 ml
CPT/HCPCS: 36415; 70450; 71045; 72125; 80048; 80076; 80320; 82962; 84484; 85025; 85730; 93005; 96360; 99285; J7030; G0480

== ENCOUNTER 2021-04-19 17:32 | Inpatient (IN) | payer OTHER ==
[~2021-04-19] VITALS: Ht 183.1 cm; Wt 115.2 kg
[2021-04-19] MEDS ORDERED: IV NS 0.9% 1,000 ML BAG IV ONE ×2 (18:00→19:30)
--- NOTE | 2021-04-19 18:03 | NUR ---
christy, from home, had seizure episode lasted 1min per dad noted black tarry stool last night and today, BS 140. On room air, breathing evenly and unlabored. Connected to the monitor and pulse ox. kept comfortable, will continue to monitor accordingly.
[2021-04-19 18:07] LABS: BASOPHILS # (AUTO) 0.1 K/uL (0.0-0.2); BASOPHILS % (AUTO) 1.1 % (0.0-2.0); EOSINOPHILS % (AUTO) 0.5 % (0.0-6.0); HEMATOCRIT 43 % (39-51); HEMOGLOBIN 14.4 g/dL (13.5-17.5); LYMPHOCYTES # (AUTO) 2.4 K/uL (0.8-4.8); LYMPHOCYTES % (AUTO) 35.7 % (20.0-44.0); MEAN CORPUSCULAR HGB CONC 34 g/dl (31.0-36.0); MEAN CORPUSCULAR VOLUME 91 fL (80-96); MONOCYTES # (AUTO) 0.5 K/uL (0.1-1.30); NEUTROPHILS # (AUTO) 3.7 K/uL (1.8-8.9); NEUTROPHILS % (AUTO) 55.7 % (43.0-81.0); PLATELET COUNT (AUTO) 334 K/uL (150-450); RED BLOOD CELL COUNT(AUTO) 4.72 MIL/uL (4.5-6.0); WHITE BLOOD COUNT (AUTO) 6.7 K/uL (4.3-11.0)
[2021-04-19] MEDS ORDERED: IV NS 0.9% 250 ML IV ONE ×2 (18:27→23:15)
[2021-04-19] MEDS ORDERED: IOHEXOL-300 100 ML VIAL IV ONE (18:27)
--- NOTE | 2021-04-19 18:41 | NUR ---
MOVE SHEET SUBMITTED AND CALLED FOR TELE BED.
[2021-04-19 19:01] LABS: CALCIUM, SERUM 8.3 mg/dL (8.5-10.1); CARBON DIOXIDE 23 mmol/L (21-32); CHLORIDE 98 mmol/L (98-107); CREATININE 0.9 mg/dL (0.6-1.3); GLUCOSE 122 mg/dL (74-106); POTASSIUM 4.3 mmol/L (3.5-5.1); SODIUM SERUM 137 mmol/L (136-145); UREA NITROGEN, BLOOD 8 mg/dL (7-18)
--- NOTE | 2021-04-19 19:05 | NUR ---
PLACED PT ON 2L O2 FOR COMFORT. 96% VIA NC
[2021-04-19 19:18] LABS: ALANINE AMINOTRANSFERASE 247 U/L (12-78); ALBUMIN 4.1 g/dL (3.4-5.0); ALCOHOL, BLOOD 424 mg/dL (0-0); ALKALINE PHOSPHATASE 90 U/L (46-116); ASPARTATE AMINOTRANSFERASE 241 U/L (15-37); BILIRUBIN,DIRECT 0.2 mg/dL (0.0-0.2); BILIRUBIN,TOTAL 0.8 mg/dL (0.2-1.0); TOTAL PROTEIN, SERUM 8.2 g/dL (6.4-8.2)
--- NOTE | 2021-04-19 20:15 | NUR ---
BC OBTAINED, SENT TO LAB
--- NOTE | 2021-04-19 20:27 | NUR ---
PER PT REQUEST. CALLED HIS FATER GHASSAN SR. [phone] TO UPDATE ON PTS STATUS.
--- NOTE | 2021-04-19 20:37 | NUR ---
CALLED HOUSE SUP FOR TELE BED. AWAITING FOR COVID RESULTS
--- NOTE | 2021-04-19 21:21 | NUR ---
TELE BED: 779-8
--- NOTE | 2021-04-19 21:26 | NUR ---
ELO PERKINS NP, HOSPITALIST, AT BED SIDE
--- NOTE | 2021-04-19 21:39 | NUR ---
REPORT GIVEN TO JESSICA MILLS FOR KARLEE PT WILL BE TRANSPORTED TO 3RD FLOOR
[2021-04-19 22:30] VITALS: BP 118/77
[2021-04-19] MEDS ORDERED: MAG HYDROX/AL HYDROX/SIMETH 30 ML UDC PO PRN (22:30)
[2021-04-19] MEDS ORDERED: ACETAMINOPHEN 325 MG TABLET PO PRN (22:30)
[2021-04-19] MEDS ORDERED: ONDANSETRON HCL/PF 4 MG/2 ML VIAL IVP PRN (22:30)
[2021-04-19] MEDS ORDERED: IOHEXOL-350 100 ML VIAL IV ONE (23:15)
[2021-04-19] MEDS ORDERED: CT SWABBABLE VALVE TRANS SET 1 EA INFUS.SET MC ONE (23:15)
[2021-04-19 23:30] VITALS: BP 118/77
[2021-04-20] VITALS (7 sets, daily range): BP systolic 117–157; BP diastolic 77–96
[2021-04-20] MEDS: MORPHINE SULFATE INJ 2 MG/ML DISP.SYRIN IV PRN ×6 (00:54→23:01)
--- NOTE | 2021-04-20 00:54 | NUR ---
vehicle dynamics engineer notes Pt is complaining of pain on upper abdomen 10/10 on pain scale. Pt requesting pain meds. Administered morphine2 mg/iv push as ordered for pain. safety precautions is maintained. Primary nurse is aware and informed. Will continue to monitor.
[2021-04-20] MEDS: THIAMINE HCL 100 MG TABLET PO SCH ×2 (01:16→08:38)
[2021-04-20] MEDS: FOLIC ACID 1 MG TABLET PO SCH ×2 (01:16→08:38)
[2021-04-20] MEDS: CHLORDIAZEPOXIDE HCL 25 MG CAPSULE PO SCH ×3 (01:16→17:05)
--- NOTE | 2021-04-20 05:04 | NUR ---
FAXED FACE SHEET TO [facility] FOR PSYCH CONSULT IN AM WITH DR VILLA- CALLED [employer] AND SPOKE TO CHARGE NURSE NOVEM AND INFORMED ABOUT THE CONSULT, CONFIRMED THAT SHE RECEIVED THE FAX, WILL ENDORSE TO THE DAYSHIFT ONCOMING NURSE.
[2021-04-20 06:37] LABS: BASOPHILS # (AUTO) 0.1 K/uL (0.0-0.2); BASOPHILS % (AUTO) 1.1 % (0.0-2.0); EOSINOPHILS % (AUTO) 1.8 % (0.0-6.0); HEMATOCRIT 38 % (39-51); HEMOGLOBIN 13.1 g/dL (13.5-17.5); LYMPHOCYTES # (AUTO) 1.9 K/uL (0.8-4.8); LYMPHOCYTES % (AUTO) 28.2 % (20.0-44.0); MEAN CORPUSCULAR HGB CONC 34 g/dl (31.0-36.0); MEAN CORPUSCULAR VOLUME 92 fL (80-96); MONOCYTES # (AUTO) 0.3 K/uL (0.1-1.30); MONOCYTES % (AUTO) 4.4 % (2.0-12.0); NEUTROPHILS # (AUTO) 4.3 K/uL (1.8-8.9); NEUTROPHILS % (AUTO) 64.5 % (43.0-81.0); PLATELET COUNT (AUTO) 249 K/uL (150-450); RED BLOOD CELL COUNT(AUTO) 4.18 MIL/uL (4.5-6.0); WHITE BLOOD COUNT (AUTO) 6.7 K/uL (4.3-11.0)
--- NOTE | 2021-04-20 07:40 | NUR ---
RN OPENING NOTES Patient seen comfortably lying in bed, respirations even and unlabored, no SOB, no apparent distress noted, denies any pain or discomfort at this time. Call light left within reach, safety precautions in place, brakes locked, side rails up X 2, will monitor closely for any changes.
[2021-04-20 07:55] LABS: CREATININE 0.8 mg/dL (0.6-1.3); MAGNESIUM 1.9 mg/dL (1.8-2.4); POTASSIUM 3.6 mmol/L (3.5-5.1)
[2021-04-20] MEDS ORDERED: GABA-532 PO (08:20)
[2021-04-20] MEDS ORDERED: PHEN100C4 PO (08:20)
[2021-04-20] MEDS: PANTOPRAZOLE 40 MG VIAL IV SCH ×2 (08:38→17:05)
[2021-04-20] MEDS: NICOTINE PATCH (14MG) 14 MG PATCH.TD24 TD SCH (08:38)
--- NOTE | 2021-04-20 10:43 | NUR ---
Per Dr. Duque, social service to file DMV report for seizure, manager social work made aware, spoke to Lynda arroyo [phone].
--- NOTE | 2021-04-20 12:05 | NUR ---
SS Note: SS Consult requested by Esvin Duque NP for DMV Re-examination as pt. suffers from Seizures. SW filed DMV re-examination paperwork in pt.'s chart due to stroke and informed attending physician, Dr. Massey to sign. SW will follow up and mail paperwork when signed. SW notified nursing.
[2021-04-20] MEDS: LORAZEPAM INJ 2 MG/ML VIAL IV PRN ×2 (13:02→21:39)
--- NOTE | 2021-04-20 15:31 | NUR ---
Patient seen and examined by Dr. Tai cueva new orders to start patient with Keppra 500mg PO q12 hours for seizure and to start Gabapentin 300mg PO qhs for neuropathy, orders noted and carried out.
--- NOTE | 2021-04-20 19:30 | NUR ---
MS RN NOTES RECEIVED ON BED A/O X4,BREATHING REGULAR,NOT IN ANY FORM OF DISTRESS,SEIZURE PRECAUTION OBSERVED,SIDE RAILS PADDED FOR SAFETY,NPO EXCEPT MEDS WITH SIPS OF WATER,SALINE LOCK LEFT HAND INTACT AND PATENT.ASSIST WITH ADL'S,CALL LIGHT IN REACH,NEEDS ANTICIPATED.
--- NOTE | 2021-04-20 19:40 | NUR ---
RN CLOSING NOTES Patient in bed, AO X 4, able to make needs known, can follow simple commands, no apparent distress noted, no SOB, respirations even and unlabored, denies any pain or discomfort. All medications given per MD order, tolerating well. Pain medications and anti-anxiety given per MD order when non pharmacological measures ineffective, tolerating well. All needs attended, kept clean and dry, call light left within reach, safety precautions in place, brakes locked, side rails up X 2, will endorse to next shift for continuity of care.
[2021-04-20] MEDS: LEVETIRACETAM (250 MG) 250 MG TABLET PO SCH (20:57)
[2021-04-20] MEDS: GABAPENTIN 300 MG CAPSULE PO SCH (20:57)
--- NOTE | 2021-04-20 21:39 | NUR ---
MS RN NOTES FEELING ANXIOUS,ATIVAN 1 MG IV GIVEN ORDERED
--- NOTE | 2021-04-20 23:01 | NUR ---
MS RN NOTES PAIN MANAGEMENT C/O GENERALIZED PAIN 8/10 ON PAIN SCALE,MORPHINE 2MG IVP GIVEN ORDERED.
--- NOTE | 2021-04-21 01:00 | NUR ---
MS RN NOTES SOUND ASLEEP,KEPT WARM AND COMFORTABLE.
[2021-04-21 06:09] LABS: BASOPHILS # (AUTO) 0.1 K/uL (0.0-0.2); BASOPHILS % (AUTO) 1.1 % (0.0-2.0); EOSINOPHILS % (AUTO) 4.1 % (0.0-6.0); HEMATOCRIT 40 % (39-51); HEMOGLOBIN 13.6 g/dL (13.5-17.5); LYMPHOCYTES # (AUTO) 1.2 K/uL (0.8-4.8); LYMPHOCYTES % (AUTO) 21.1 % (20.0-44.0); MEAN CORPUSCULAR HGB CONC 34 g/dl (31.0-36.0); MEAN CORPUSCULAR VOLUME 91 fL (80-96); MONOCYTES # (AUTO) 0.4 K/uL (0.1-1.30); MONOCYTES % (AUTO) 6.7 % (2.0-12.0); NEUTROPHILS # (AUTO) 3.6 K/uL (1.8-8.9); PLATELET COUNT (AUTO) 222 K/uL (150-450); RED BLOOD CELL COUNT(AUTO) 4.42 MIL/uL (4.5-6.0); WHITE BLOOD COUNT (AUTO) 5.5 K/uL (4.3-11.0)
--- NOTE | 2021-04-21 06:27 | NUR ---
MS RN NOTES ASLEEP MOST OF THE NIGHT,ANXIETY EPISODE RESOLVED,,NO SEIZURE ACTIVITY NOTED,,SIDE RAILS REMAINS PADDED FOR SAFETY,PAIN MANAGEMENT EFFECTIVE,IN NO ACUTE DISTRESS WILL ENDORSE TO DAY NURSE FOR KARLEE.
[2021-04-21 07:16] LABS: CALCIUM, SERUM 9.4 mg/dL (8.5-10.1); CREATININE 0.8 mg/dL (0.6-1.3); POTASSIUM 3.7 mmol/L (3.5-5.1)
--- NOTE | 2021-04-21 07:30 | NUR ---
RN OPENING NOTES Patient seen comfortably lying in bed, no SOB, breathing even and unlabored, denies any pain or discomfort at this time, no apparent distress noted. Call light left within reach, safety precautions in place, brakes locked, side rails up X 2, will monitor closely for any changes.
--- NOTE | 2021-04-21 08:01 | NUR ---
Patient seen and examined by Dr. Massey, patient with eyes closed, and comfortably sleeping. Per MD okay to change diet to clear liquids and may advance as tolerated, orders noted and carried out and kitchen made aware of the situation
[2021-04-21] MEDS: NICOTINE PATCH (14MG) 14 MG PATCH.TD24 TD SCH (08:55)
[2021-04-21] MEDS: PANTOPRAZOLE 40 MG VIAL IV SCH ×2 (08:55→16:28)
[2021-04-21] MEDS: THIAMINE HCL 100 MG TABLET PO SCH (08:55)
[2021-04-21] MEDS: FOLIC ACID 1 MG TABLET PO SCH (08:56)
[2021-04-21] MEDS: LEVETIRACETAM (250 MG) 250 MG TABLET PO SCH ×2 (08:56→20:45)
[2021-04-21] MEDS: CHLORDIAZEPOXIDE HCL 25 MG CAPSULE PO SCH ×2 (08:56→16:28)
[2021-04-21 09:01] VITALS: BP 148/98
[2021-04-21] MEDS: LORAZEPAM INJ 2 MG/ML VIAL IV PRN ×2 (10:26→20:57)
[2021-04-21] MEDS: MORPHINE SULFATE INJ 2 MG/ML DISP.SYRIN IV PRN ×3 (13:06→23:50)
[2021-04-21 16:09] VITALS: BP 137/97
[2021-04-21] MEDS: GABAPENTIN 300 MG CAPSULE PO SCH (17:18)
--- NOTE | 2021-04-21 18:37 | NUR ---
RN CLOSING NOTES Patient in bed, AO X 4, no SOB, respirations even and unlabored, no apparent distress noted. All medications given per MD order, tolerating well. Pain medications and anti-anxiety given per MD order when non pharmacological measures ineffective, tolerating well. All needs attended, kept clean and dry, call light left within reach, safety precautions in place, brakes locked, side rails up X 2, will endorse to next shift for continuity of care.
--- NOTE | 2021-04-21 19:40 | NUR ---
MS RN NOTES RECEIVED ON BED SLEEPING,AROUSABLE TO VERBAL STIMULI,BREATHING NON LABORED.SALINE LOCK LEFT HAND INTACT AND PATENT.BRP WITH ASSIST.SEIZURE PRECAUTION OBSERVED,SIDE RAILS PADDED FOR SAFETY.CALL LIGHT IN REACH,NEEDS ANTICIPATED.
[2021-04-21 20:00] VITALS: BP 147/95
[2021-04-21 20:10] VITALS: BP 147/95
--- NOTE | 2021-04-21 20:57 | NUR ---
MS RN NOTES FEELING ANXIOUS,ATIVAN 1MG IV GIVEN FOR ANXIETY
[2021-04-21] MEDS ORDERED: TRAZODONE 50 MG TABLET PO ONE (22:00)
--- NOTE | 2021-04-21 23:50 | NUR ---
MS RN NOTES PAIN MANAGEMENT C/O GENERALIZED PAIN,MORPHINE 2MG IV GIVEN PER PATIENT REQUEST
[2021-04-22 00:21] VITALS: BP 153/90
[2021-04-22 04:45] VITALS: BP 147/95
[2021-04-22 06:29] LABS: HEMATOCRIT 41 % (39-51); HEMOGLOBIN 14.1 g/dL (13.5-17.5); LYMPHOCYTES # (AUTO) 1.5 K/uL (0.8-4.8); LYMPHOCYTES % (AUTO) 31.7 % (20.0-44.0); MEAN CORPUSCULAR HGB CONC 34 g/dl (31.0-36.0); MEAN CORPUSCULAR VOLUME 91 fL (80-96); MONOCYTES # (AUTO) 0.4 K/uL (0.1-1.30); MONOCYTES % (AUTO) 7.9 % (2.0-12.0); NEUTROPHILS # (AUTO) 2.5 K/uL (1.8-8.9); NEUTROPHILS % (AUTO) 54.4 % (43.0-81.0); PLATELET COUNT (AUTO) 202 K/uL (150-450); RED BLOOD CELL COUNT(AUTO) 4.53 MIL/uL (4.5-6.0); WHITE BLOOD COUNT (AUTO) 4.6 K/uL (4.3-11.0)
--- NOTE | 2021-04-22 06:33 | NUR ---
MS RN NOTES ASLEEP MOST ON THE NIGHT, ANXIETY IMPROVED,NO SEIZURE ACTIVITY NOTED,SIDE RAILS PADDED FOR SAFETY,CALL LIGHT IN REACH,NEEDS ATTENDED.
[2021-04-22 06:56] LABS: CALCIUM, SERUM 9.4 mg/dL (8.5-10.1); CREATININE 0.7 mg/dL (0.6-1.3); POTASSIUM 3.4 mmol/L (3.5-5.1)
--- NOTE | 2021-04-22 07:46 | NUR ---
MS/RN OPENING NOTES RECEIVED PATIENT IN BED, ALERT AND ORIENTED X4, ABLE TO MAKE NEEDS KNOWN. STABLE ON ROOM AIR. NO SOB REPORTED AT THIS TIME. IV ACCESS ON LEFT HAND #20G IS INTACT AND PATENT. SIDE RAILS PADDED PRECAUTIONS. SAFETY MEASURES IN PLACED: BED LOCKED ON LOWEST LOCKED POSITION, SIDE RAILS UPX3, CALL LIGHT WITHIN REACH. WILL CONTINUE TO MONITOR PATIENT.
[2021-04-22] MEDS ORDERED: CHLO25CA22 PO (08:04)
[2021-04-22] MEDS ORDERED: GABA300C PO (08:04)
[2021-04-22] MEDS ORDERED: LEVE250T2 PO (08:04)
[2021-04-22] MEDS: CHLORDIAZEPOXIDE HCL 25 MG CAPSULE PO SCH (09:14)
[2021-04-22] MEDS: THIAMINE HCL 100 MG TABLET PO SCH (09:14)
[2021-04-22] MEDS: NICOTINE PATCH (14MG) 14 MG PATCH.TD24 TD SCH (09:15)
[2021-04-22] MEDS: LEVETIRACETAM (250 MG) 250 MG TABLET PO SCH (09:15)
[2021-04-22] MEDS: FOLIC ACID 1 MG TABLET PO SCH (09:15)
[2021-04-22] MEDS: PANTOPRAZOLE 40 MG VIAL IV SCH (09:15)
[2021-04-22] MEDS: MORPHINE SULFATE INJ 2 MG/ML DISP.SYRIN IV PRN ×2 (09:15→14:54)
[2021-04-22] MEDS ORDERED: POTASSIUM CHLORIDE 20 MEQ POWDER PACKET PO SCH (09:30)
[2021-04-22] MEDS: LORAZEPAM INJ 2 MG/ML VIAL IV PRN (10:37)
--- NOTE | 2021-04-22 11:42 | NUR ---
SS Consult: SS Consult requested for drug abuse & alcohol abuse. The pt. is a 36-year old male who is in [facility] seeking medical attention for Grand Mal seizures. The pt. appears unkempt, mal odorous is A&O X4 and makes avoidant eye contact. Pt.s mood is depressed with depressed affect. Pt. denies auditory hallucinations and states he was having minor visual hallucinations last night due to alcohol & opioid withdrawals. Pt. denies SI/ HI. ARACELI explored pt.s mental health Hx. Pt. denies mental illness, however, per EMR pt. has Hx. of Schizophrenia. ARACELI explored pt.s living situation. Pt. states he lives at home [[address] [facility] [address]; [phone]] with his parents . ARACELI explored pt.s drug & ETOH use. Patient stated he uses heroin or OxyContin daily and ETOH daily. ARACELI provided resources for Medication Assisteed Tx: [facility]: [address] [place] [place] [address] Intake hours: 5:45am9:00am, walk-ins Sunday, Sunday, [facility]: [address] [place] [address] Intake hours: 5:45am12:30pm, Sunday and [facility]: [address] [place] [address] Intake hours: 8:00am2:00pm, Sunday through Sunday Pt. accepted resources and stated, I would like to b referred to [facility] as I was receiving Suboxone Tx there in the past. ARACELI Pt. is in the action phase of stages of change. Patient stated he has received prior treatment for opioid dependence. Pt. states he would like to go to [facility] inpatient detox as it usually takes him 7 days to detox and then go to their residential Tx program. ARACELI informed pt. that they will be referred to [facility]. ARACELI explored pt.s support system. Pt. states his father is his support system. Pt. states he receives no financial assistance. Plan: ARACELI faxed clinicals to [facility] FAX: [phone] TEL:[phone] for Inpatient detox and Residential Tx.
--- NOTE | 2021-04-22 15:00 | NUR ---
TTC Follow Up: ARACELI notified that [facility] CM assigned to this pt. is Bonnie [phone] ext. [phone]. ARACELI left Bonnie a voicemail regarding update. No call back yet. ARACELI notified pt.'s AUDRA Nash.
--- NOTE | 2021-04-22 16:15 | NUR ---
MS/RN FLOAT NOTES PATIENT IS ALERT AND ORIENTED X4, ABLE TO MAKE NEEDS KNOWN. PATIENT IS AMBULATORY AND STABLE ON ROOM AIR. PATIENT IS MEDICALLY STABLE AND DR. WEBB ORDERED A DISCHARGE FOR THE PATIENT. DISCHARGE INSTRUCTIONS GIVEN AND ABLE TO UNDERSTAND TEACHING, IV ACCESS ON LEFT HAND DISCONTINUED. ALL BELONGINGS ACCOUNTED FOR.
[2021-04-22 16:50] LABS: OCCULT BLOOD STOOL NEGATIVE (NEGATIVE)
[2021-04-22] MEDS ORDERED: TRAZODONE 50 MG TABLET PO SCH (22:00)
== END 2021-04-22 16:08 | disposition home or self-care (01) | DRG 775 ==
LOC: ER 17:36 → TELE 21:23 → MED 04-20 10:06
PROVIDERS: ADMIT Nurse Practitioner Family; ATTEND Family Medicine
DX: F10.239 Alcohol dependence with withdrawal, unspecified (principal); F10.229 Alcohol dependence with intoxication, unspecified; E87.2 Acidosis; K76.0 Fatty (change of) liver, not elsewhere classified; Y90.8 Blood alcohol level of 240 mg/100 ml or more; K86.1 Other chronic pancreatitis; F32.A Depression, unspecified; Z91.19 Patient's noncompliance with other medical treatment and regimen; Z86.711 Personal history of pulmonary embolism; F17.210 Nicotine dependence, cigarettes, uncomplicated; R74.01 Elevation of levels of liver transaminase levels; G40.89 Other seizures; Z20.822 Contact with and (suspected) exposure to COVID-19; F32.9 Major depressive disorder, single episode, unspecified
CPT/HCPCS: 36415; 70450-TC; 71045-TC; 80048-TC; 80061-TC; 80076-TC; 82272-TC; 83605-TC; 83690-TC; 83735-TC; 84484-TC; 85025-TC; 85730-TC; 87040-TC; 87081-TC; C9113; C9803; G0378; G0480; J2060; J2270; J7030; J7050; Q9967

== ENCOUNTER 2021-09-12 22:39 | Emergency (ER) | payer OTHER ==
[~2021-09-12] VITALS: Ht 185.4 cm; Wt 108.9 kg
[~2021-09-12 22:39] MED LIST changes: +CHLO25CA22 PO; +GABA300C PO; -HYDR-4384 PO; +LEVE250T2 PO; -RIVA10TA PO
--- NOTE | 2021-09-12 22:49 | NUR ---
arleen 39 from home for overdose on heroin. admitted on drinking alcohol (beer) as well, alert, responsive and drowsy on triage. no med BOOK AGENT. 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 patient placed in bed 10 on monitor and pox.
--- NOTE | 2021-09-12 23:03 | NUR ---
URINE COLLECTED AND SENT TO LAB
[2021-09-12] MEDS ORDERED: ONDANSETRON HCL/PF 4 MG/2 ML VIAL IVP ONE (23:30)
[2021-09-12] MEDS ORDERED: IV NS 0.9% 1,000 ML BAG IV ONE (23:30)
--- NOTE | 2021-09-12 23:32 | NUR ---
bs 126
--- NOTE | 2021-09-12 23:32 | NUR ---
ER MEDICAL BILLING AND CODING SPECIALIST @ BEDSIDE
[2021-09-12] MEDS ORDERED: ONDANSETRON HCL/PF 4 MG/2 ML VIAL ONE (23:33)
[2021-09-12 23:44] LABS: BILIRUBIN,URINE NEGATIVE (NEGATIVE); COLOR,URINE YELLOW (YELLOW); LEUKOCYTE ESTERASE ,URINE NEGATIVE (NEGATIVE); NITRITE, URINE NEGATIVE (NEGATIVE); PROTEIN,URINE 100 mg/dl (NEGATIVE); UGLUCOSE NEGATIVE (NEGATIVE); UROBILINOGEN,URINE 0.2 EU/dL (0.2)
[2021-09-12 23:56] LABS: BASOPHILS % (AUTO) 0.7 % (0.0-2.0); EOSINOPHILS % (AUTO) 0.6 % (0.0-6.0); HEMATOCRIT 42 % (39-51); LYMPHOCYTES # (AUTO) 2.2 K/uL (0.8-4.8); LYMPHOCYTES % (AUTO) 44.6 % (20.0-44.0); MEAN CORPUSCULAR HGB CONC 34 g/dl (31.0-36.0); MEAN CORPUSCULAR VOLUME 93 fL (80-96); MONOCYTES # (AUTO) 0.6 K/uL (0.1-1.30); MONOCYTES % (AUTO) 11.1 % (2.0-12.0); NEUTROPHILS # (AUTO) 2.2 K/uL (1.8-8.9); PLATELET COUNT (AUTO) 256 K/uL (150-450); RED BLOOD CELL COUNT(AUTO) 4.47 MIL/uL (4.5-6.0)
[2021-09-13 00:05] LABS: CALCIUM, SERUM 8.1 mg/dL (8.5-10.1); CARBON DIOXIDE 28 mmol/L (21-32); CHLORIDE 98 mmol/L (98-107); CREATININE 0.9 mg/dL (0.6-1.3); GLUCOSE 132 mg/dL (74-106); POTASSIUM 4.1 mmol/L (3.5-5.1); SODIUM SERUM 135 mmol/L (136-145); UREA NITROGEN, BLOOD 8 mg/dL (7-18)
[2021-09-13 00:12] LABS: ACETAMINOPHEN < 2 ug/ml (10-30); ALANINE AMINOTRANSFERASE 134 U/L (12-78); ALBUMIN 4.3 g/dL (3.4-5.0); ALCOHOL, BLOOD 342 mg/dL (0-0); ALKALINE PHOSPHATASE 73 U/L (46-116); ASPARTATE AMINOTRANSFERASE 108 U/L (15-37); BILIRUBIN,DIRECT 0.3 mg/dL (0.0-0.2); BILIRUBIN,TOTAL 0.7 mg/dL (0.2-1.0); TOTAL PROTEIN, SERUM 8.2 g/dL (6.4-8.2)
[2021-09-13 00:19] LABS: BACTERIA,URINE Rare /HPF (None Seen); SQUAMOUS EPITHELIAL CELL,UR Few /HPF (None Seen); WBC,URINE NONE SEEN /HPF (0-3)
--- NOTE | 2021-09-13 06:44 | NUR ---
DAD [phone]
--- NOTE | 2021-09-13 07:20 | NUR ---
CALLED PATIENT DAD, DID NOT SITE PLANNER AND LEFT A MESSAGE
--- NOTE | 2021-09-13 07:30 | NUR ---
PATIENT WALKS WITH STEADY GAIT, AAOX3, BREATHING EVEN AND NON LABORED
--- NOTE | 2021-09-13 08:41 | NUR ---
PATIENT DAD WILL BE PICKING UP THE PATIENT IN 15MINS
--- NOTE | 2021-09-13 09:19 | NUR ---
IV removed. Catheter intact and site benign. Pressure and 4x4 applied to site. No bleeding noted.Patient discharged to home in stable condition. Written and verbal after care instructions given. Patient verbalizes understanding of instruction.
--- NOTE | 2021-09-13 09:20 | NUR ---
PICKED UP BY DAD IN STABLE CONDITION
[2021-09-13 09:23] VITALS: BP 142/98
== END 2021-09-13 09:24 | disposition home or self-care (01) ==
LOC: ER 22:41
DX: F10.129 Alcohol abuse with intoxication, unspecified (principal); F14.90 Cocaine use, unspecified, uncomplicated; Y90.8 Blood alcohol level of 240 mg/100 ml or more; E66.9 Obesity, unspecified; Z68.31 Body mass index [BMI] 31.0-31.9, adult; F20.9 Schizophrenia, unspecified; F17.210 Nicotine dependence, cigarettes, uncomplicated; Z86.711 Personal history of pulmonary embolism; R00.0 Tachycardia, unspecified; Z20.822 Contact with and (suspected) exposure to COVID-19
CPT/HCPCS: 36415 ×2; 71045; 80048; 80076; 80143; 80307; 80320; 81001; 82962; 84484 ×2; 85025; 87426; 93005; 96361; 96374; 99285; C9803; J2405; G0480; J7030

== ENCOUNTER 2022-04-05 01:29 | Emergency (ER) | payer OTHER ==
[~2022-04-05] VITALS: Ht 180.3 cm; Wt 113.4 kg
--- NOTE | 2022-04-05 01:42 | NUR ---
[id number] C/O DRINKING TODAY PER PT FEELS LIKE HE IS WITHDRAWING. PT AWAKE AND ALERT X4 BREATHING UNLABORED, AMBULATES WITH STEADY GAIT. PLACED ON MONITOR AND V/S WNL.
[2022-04-05] MEDS ORDERED: LORAZEPAM 1 MG TABLET ONE (01:51)
--- NOTE | 2022-04-05 01:52 | NUR ---
PHLEBOTMIST AT BEDSIDE
[2022-04-05] MEDS ORDERED: LORAZEPAM 1 MG TABLET PO ONE (02:00)
[2022-04-05 02:10] LABS: BASOPHILS % (AUTO) 0.9 % (0.0-2.0); EOSINOPHILS % (AUTO) 1.2 % (0.0-6.0); HEMATOCRIT 45 % (39-51); HEMOGLOBIN 14.9 g/dL (13.5-17.5); LYMPHOCYTES # (AUTO) 1.6 K/uL (0.8-4.8); LYMPHOCYTES % (AUTO) 54.1 % (20.0-44.0); MEAN CORPUSCULAR HGB CONC 33 g/dl (31.0-36.0); MEAN CORPUSCULAR VOLUME 95 fL (80-96); MONOCYTES # (AUTO) 0.2 K/uL (0.1-1.30); MONOCYTES % (AUTO) 7.6 % (2.0-12.0); NEUTROPHILS % (AUTO) 36.2 % (43.0-81.0); PLATELET COUNT (AUTO) 161 K/uL (150-450); WHITE BLOOD COUNT (AUTO) 2.9 K/uL (4.3-11.0)
[2022-04-05 02:18] LABS: CALCIUM, SERUM 8.9 mg/dL (8.5-10.1); CARBON DIOXIDE 25 mmol/L (21-32); CHLORIDE 103 mmol/L (98-107); CREATININE 0.9 mg/dL (0.6-1.3); GLUCOSE 117 mg/dL (74-106); POTASSIUM 4.1 mmol/L (3.5-5.1); SODIUM SERUM 140 mmol/L (136-145); UREA NITROGEN, BLOOD 6 mg/dL (7-18)
[2022-04-05 02:33] LABS: ALANINE AMINOTRANSFERASE 50 U/L (12-78); ALBUMIN 4.1 g/dL (3.4-5.0); ALKALINE PHOSPHATASE 64 U/L (46-116); ASPARTATE AMINOTRANSFERASE 45 U/L (15-37); BILIRUBIN,DIRECT 0.1 mg/dL (0.0-0.2); BILIRUBIN,TOTAL 0.3 mg/dL (0.2-1.0)
[2022-04-05 02:35] LABS: ACETAMINOPHEN 0 ug/ml (10-30); ALCOHOL, BLOOD > 300 mg/dL (0-0)
[2022-04-05 10:25] VITALS: BP 138/88
== END 2022-04-05 10:25 | disposition home or self-care (01) ==
LOC: ER 01:35
DX: F10.129 Alcohol abuse with intoxication, unspecified (principal); F41.9 Anxiety disorder, unspecified; D72.819 Decreased white blood cell count, unspecified; F20.9 Schizophrenia, unspecified; F17.200 Nicotine dependence, unspecified, uncomplicated; Z86.69 Personal history of other diseases of the nervous system and sense organs; Z79.899 Other long term (current) drug therapy; Y90.8 Blood alcohol level of 240 mg/100 ml or more
CPT/HCPCS: 36415; 80048-TC; 80076-TC; 85025-TC; G0480